=== PATIENT | female | born 1945 | race Hispanic/Latino ===

== ENCOUNTER 2019-04-30 05:38 | Day surgery (SDC) | payer OTHER, MEDICARE ==
[2019-04-25 13:04] LABS: BASOPHILS % (AUTO) 0.9 % (0.0-5.0); EOSINOPHILS % (AUTO) 0.7 % (0.0-8.0); HEMATOCRIT 40.9 % (36-48); LYMPHOCYTES % (AUTO) 28.8 % (21.0-51.0); MEAN CORPUSCULAR HEMOGLOBIN 33.6 pg (27.0-33.0); MEAN CORPUSCULAR VOLUME 101.7 fL (79-99); MONOCYTES % (AUTO) 13.1 % (3.0-13.0); NEUTROPHILS % (AUTO) 56.5 % (40.0-77.0); NUCLEATED RED BLOOD CELLS 0.1 % (0.0-0.19); PLATELET COUNT (AUTO) 105 K/uL (130-400); RED BLOOD CELL COUNT(AUTO) 4.02 MIL/uL (4.00-5.50); RED CELL DISTRIBUTION WIDTH 16.3 % (11.0-15.5); WHITE BLOOD COUNT (AUTO) 3.9 K/uL (4.8-10.8)
[2019-04-25 13:10] LABS: APPEARANCE,URINE Clear (CLEAR); BILIRUBIN,URINE Negative (NEGATIVE); COLOR,URINE Yellow (YELLOW); GLUCOSE, URINE (UA) Negative (NEGATIVE); KETONES,URINE Negative (NEGATIVE); LEUKOCYTE ESTERASE ,URINE Negative (NEGATIVE); NITRATE,URINE Negative (NEGATIVE); OCCULT BLOOD,URINE Negative (NEGATIVE); PH,URINE 7.5 (5.0-8.0); PROTEIN,URINE Negative (NEGATIVE)
[2019-04-25 13:13] LABS: CREATININE 1.1 mg/dL (0.5-1.5); POTASSIUM 4.4 mmol/L (3.5-5.1)
[2019-04-25 13:15] LABS: INR 1.41 (0.85-1.15); PROTHROMBIN TIME 14.7 SEC (9.6-11.6)
[2019-04-25 13:34] VITALS: BP 154/75
[2019-04-25 13:43] LABS: PLATELET MORPHOLOGY COMMENT DECREASED
--- NOTE | 2019-04-27 13:40 | NUR ---
LABS INFORMED SIRI LEI OF ABNORMAL WBC/ PLATELET LEVEL/INR. NO ORDERS RECEIVED. PROCEED WITH PLANNED PROCEDURE.
[2019-04-30] VITALS (8 sets, daily range): BP systolic 140–152; BP diastolic 65–77
[~2019-04-30] VITALS: Ht 167.6 cm; Wt 80.6 kg
[~2019-04-30 05:38] MED LIST: ATOR40TA71 PO; HYDR25TA PO; LEVO25TA54 PO; LOSA100T2 PO; SODIUM CHLORIDE 0.9% 500ML 500 ML IV SCH; VITAMIN D3 PO; WARF6TAB49 PO
[2019-04-30] MEDS ORDERED: SODIUM CHLORIDE 0.9% 1000ML 1,000 ML IV ONE (06:44)
[2019-04-30] MEDS ORDERED: IOHEXOL-350 50ML VIAL IV ONE (07:15)
[2019-04-30] MEDS ORDERED: IOHEXOL 350 MG/ML 100ML INFUS..BTL IV ONE (07:15)
[2019-04-30] MEDS ORDERED: LIDOCAINE HCL 2% 20ML ONE (07:15)
[2019-04-30] MEDS ORDERED: HEPARIN SODIUM 1000UNIT/ML 10ML VIAL ONE (07:15)
--- NOTE | 2019-04-30 08:16 | NUR ---
PT RECEIVED FROM DIRECTOR [facility] VIA BED PT IS V/S STABLE, PULSES ARE PRESENT BILATERAL DP, ANGEAL SEAL APPLIED, NO HEMATOMA, NO BLEEDING, SITE IS SOFT AND DRY.
[2019-04-30] MEDS ORDERED: CARV3.12 PO (08:28)
--- NOTE | 2019-04-30 08:31 | NUR ---
V/S STABLE SITE IS DRY AND INTACT, NO PAIN NO HEMATOMA OR BLEEDING
--- NOTE | 2019-04-30 08:46 | NUR ---
V/S CONTINUE TO BE STABLE SITE IS DRY AND INTACT, NO PAIN
--- NOTE | 2019-04-30 09:00 | NUR ---
PT HAS NO COMPLAINTS CONTINUES TO HAVE STABLE V/S WITH NO PAIN, BLEEDING, OR HEMATOMA TO SITE.
--- NOTE | 2019-04-30 09:30 | NUR ---
DRESSING IS DRY AND INTACT NO HEMATOMA OR PAIN. WILL CONTINUE TO OBSERVE PATIENT.
--- NOTE | 2019-04-30 10:00 | NUR ---
PT. HAS NO COMPLAINTS OR COMPLICATIONS AT THIS TIME. V/S ARE STABLE AND DRESSING IS DRY AND INTACT.
--- NOTE | 2019-04-30 11:15 | NUR ---
PT 3 HR BEDREST IS UP NO COMPLICATION AND DRESSING IS DRY AND INTACT NO HEMATOMA, NO PAIN, NO BLEEDING. PT. WILL BE D/C AT [address] NICHOLS ORDERS.
--- NOTE | 2019-04-30 11:58 | NUR ---
PT. V/S ARE STABLE NO COMPLICATION DRESSING DRY AND INTACT, NO HEMATOMA NO BLEEDING NO PAIN. PT. LEAVING VIA WHEELCHAIR IN PVT CAR AND RX SCRIPT GIVEN TO HER SON ELIAS BLACKWOOD. F/U SCHEDULED IN 2 WEEKS.
== END 2019-04-30 12:05 ==
LOC: DAH 05:38
PROVIDERS: ATTEND Internal Medicine Cardiovascular Disease
DX: I42.0 Dilated cardiomyopathy (principal); I10 Essential (primary) hypertension; E78.5 Hyperlipidemia, unspecified; I48.91 Unspecified atrial fibrillation; E03.9 Hypothyroidism, unspecified; Z85.3 Personal history of malignant neoplasm of breast; Z86.718 Personal history of other venous thrombosis and embolism; Z79.01 Long term (current) use of anticoagulants; Z98.890 Other specified postprocedural states; Z79.899 Other long term (current) drug therapy; Z82.49 Family history of ischemic heart disease and other diseases of the circulatory system
CPT/HCPCS: 36415; 71045; 80048; 81003; 85025; 85610; 85730; 93005; 93458; A4215; A4216; A4221; A4222; A4223 ×3; A4606; C1760; C1894; J1644; J3490; J7030; Q9965; Q9967 ×2